=== PATIENT | female | born 1945 | race American Indian/Alaskan Native ===

== ENCOUNTER 2020-07-04 09:15 | Outpatient (CLI) | payer MEDICARE ==
--- NOTE | 2020-07-04 11:47 | Fluoroscopy Report ---
BARIUM SWALLOW Indication: DYSPHAGIA,UNSPECIFIED TYPE. Technique: Single and double contrast barium technique utilized to evaluate the esophagus. FINDINGS: To begin the exam, swallowing was evaluated in the lateral position under direct fluorosco py. Swallowing was normal. No mucosal irregularity, mass, mass effect, or critical stenosis. Occasional mild tertiary contract ions were witnessed consistent with mild esophagitis. No hiatal hernia or gastroesophageal reflux was witnessed during this exam. The patient was able to ingest and pass a barium tablet without difficul ty. IMPRESSION: Mild esophageal spasm consistent with mild esophagitis. Fluoroscopic time: 2.2 minutes Number of fluoroscopic images: 23 Signer Name: Ronni Gotti Jr, MD Signed: 07/04/2020 11:42 AM Workstation Name: [id number]
== END 2020-07-04 09:16 | disposition home or self-care (01) ==
LOC: FLUORO 09:15
PROVIDERS: ATTEND Internal Medicine Gastroenterology
DX: K22.4 Dyskinesia of esophagus (principal)
CPT/HCPCS: 74221

== ENCOUNTER 2020-07-06 13:21 | Outpatient (CLI) | payer MEDICARE ==
--- NOTE | 2020-07-06 16:14 | Cat Scan Report ---
CT CHEST WITHOUT CONTRAST INDICATION / CLINICAL INFORMATION: THORACIC AORTIC ANEURYSM,W/O RUPTURE. TECHNIQUE: Axial CT images were obtained through the chest without contrast. All CT scans at this location are p erformed using CT dose reduction for ALARA by means of automated exposure control. COMPARISON: None available. FINDINGS: HEART: No significant abnormality. THORACIC AORTA: Dilation of the ascending thoracic aorta measuring up to 4.8 cm in diameter. The mid and distal descending thoracic aorta appear unremarkable measuring 2.8 and 2.6 cm in diameter respect ively.. MEDIASTINUM and BRAD: No significant abnormality. LUNGS: Scattered mixed airspace density within both lower lungs. PLEURA: No significant pleural effusion. No pneumothorax. ADDITIONAL FINDINGS: None. UPPER ABDOMEN: Fatty liver. SKELETAL SYSTEM: No significant abnormality. IMPRESSION: 1. Ascending thoracic aortic aneurysm, as above 2. Patchy bibasilar airspace opacity within both lower lungs could represent pneumonitis, scarring or atelectasis. Signer Name: Gurdeep Silva MD Signed: 07/06/2020 4:10 PM Workstation Name: [id number]
== END 2020-07-06 13:22 | disposition home or self-care (01) ==
LOC: CT 13:21
PROVIDERS: ATTEND Surgery Vascular Surgery
DX: K76.0 Fatty (change of) liver, not elsewhere classified (principal); I71.2 Thoracic aortic aneurysm, without rupture; R91.8 Other nonspecific abnormal finding of lung field
CPT/HCPCS: 71250